=== PATIENT | female | born 1965 | race Caucasian/White ===

== ENCOUNTER 2017-01-08 06:02 | Day surgery (SDC) | payer OTHER ==
[~2017-01-08] VITALS: Ht 162.6 cm; Wt 100.1 kg
[~2017-01-08 06:02] MED LIST: DIABETES PILL PO; MTF1000T PO
[2017-01-08 06:59] VITALS: Ht 162.6 cm; Wt 100.1 kg
[2017-01-08] MEDS ORDERED: JANUVIA (07:10)
[2017-01-08] MEDS ORDERED: HUMALOG (07:10)
[2017-01-08] MEDS ORDERED: GLIPIZIDE (07:10)
[2017-01-08] MEDS ORDERED: ASPIRIN (07:10)
[2017-01-08] MEDS ORDERED: PROPOFOL 20 ML ONE (07:13)
[2017-01-08] MEDS ORDERED: LIDOCAINE 2% (SDV) 5 ML INJ ONE (07:13)
[2017-01-08] MEDS ORDERED: MIDAZOLAM 1 MG/ML 2 ML INJ ONE (07:14)
--- NOTE | 2017-01-08 08:25 | OPPN ---
Date/Time of Note Date/Time of Note DATE: 01/08/17 TIME: 08:24 Operative Report Preoperative Diagnosis Change in bowel habit Screening Postoperative Diagnosis Poor prep Multiple colon polyps Operation/Procedure Performed Colonoscopy and biopsy Surgeon see signature line education administrative assistant None Anesthesia: MAC Estimated blood loss: none Transfusion Required none Specimen Colon polyps Grafts/Implants none Complications none JAIRO PAGAN MD Jan 08, 2017 08:25
[2017-01-08 08:48] VITALS: BP 100/65; RESP 14
--- NOTE | 2017-01-08 10:18 | GILP ---
DATE OF PROCEDURE: 01/08/2017 NAME OF PROCEDURE: Colonoscopy and biopsy. SURGEON: Dewey Fam MD PREOPERATIVE DIAGNOSES: 1. Change in bowel habits. 2. Screening colonoscopy. POSTOPERATIVE DIAGNOSES: 1. Colonoscopy all the way to the cecum. 2. Poor preparation, making the exam suboptimal. 3. Multiple colon polyps were removed. 4. Internal hemorrhoids. INDICATION FOR THE PROCEDURE: Ms. Anali Eastman is a 51-year-old female patient, who noticed the change in the bowel habit. She has a history of colon polyps. Previous colonoscopic examination was suboptimal because of poor prep. Patient was scheduled for colonoscopy for further evaluation. The procedure and possible complications were well explained to the patient. She understood and consented to the procedure. DESCRIPTION OF PROCEDURE: Under the influence of anesthesia, the colonoscope was carefully introduced into the rectum, and under direct vision, it was advanced all the way to the cecum. FINDINGS: Patient had poor prep making the exam suboptimal. Patient was noted to have multiple small colon polyps, and they were removed using biopsy forceps. She had internal hemorrhoids. She tolerated the procedure very well. There was no complication from the procedure. At the end of the procedure, she was awake with stable vital signs, and she was discharged home in care of her family. IMPRESSION: Please see postoperative diagnoses. PLAN: 1. Await histopathology report. 2. Because of the poor prep and suboptimal nature of the examination, the patient may need repeat colonoscopy with better preparation in 2-3 years. Dictated By: MD NIKOLAY Martinez/diane/constantine /Document#: [id number]
== END 2017-01-08 12:18 | disposition home or self-care (01) ==
LOC: GIL 06:02
PROVIDERS: ATTEND Internal Medicine Gastroenterology
DX: R19.4 Change in bowel habit (principal); K64.8 Other hemorrhoids; D12.6 Benign neoplasm of colon, unspecified
CPT/HCPCS: 45380; 82962; 88305; 88312; J2250; Z7610; 88300

== ENCOUNTER → 2017-10-02 | Outpatient (CLI) | END | disposition home or self-care (01) ==

== ENCOUNTER → 2017-10-16 | Outpatient (CLI) | END | disposition home or self-care (01) ==